=== PATIENT | female | born 1950 | race Caucasian/White ===

== ENCOUNTER 2017-09-01 14:49 | Emergency (ER) | payer MEDICARE, MEDICAID ==
[~2017-09-01] VITALS: Ht 162.6 cm; Wt 63.5 kg
[2017-09-01 15:10] VITALS: BP 166/116
[2017-09-01] MEDS ORDERED: LORazepam 0.5 MG TAB PO ONE (16:00)
== END 2017-09-01 16:46 | disposition home or self-care (01) ==
LOC: ER 14:49
DX: F41.9 Anxiety disorder, unspecified (principal); I10 Essential (primary) hypertension; B19.20 Unspecified viral hepatitis C without hepatic coma; F17.210 Nicotine dependence, cigarettes, uncomplicated; Z98.51 Tubal ligation status
CPT/HCPCS: 93005